=== PATIENT | female | born 1960 | race Caucasian/White ===

== ENCOUNTER 2018-12-21 06:52 | Emergency (ER) | payer BC ==
[~2018-12-21] VITALS: Ht 167.6 cm; Wt 74.8 kg
[2018-12-21] MEDS ORDERED: ARMOUR THYROID90 MG PO (07:14)
[2018-12-21] MEDS ORDERED: PROGESTERONE100 MG PO (07:15)
== END 2018-12-21 09:24 | disposition home or self-care (01) ==
LOC: ED 06:52
DX: K59.00 Constipation, unspecified (principal)
CPT/HCPCS: 74177; 80053; 81001; 85025; 96360; 99284-25; J7040; Q9967